=== PATIENT | male | born 1970 | race Hispanic/Latino ===

== ENCOUNTER 2016-11-04 05:18 | Inpatient (IN) ==
[2016-10-31 09:34] LABS: MANUAL DIFF NEEDED? NO; URINE MICRO REVIEW NEEDED? NO; URINE SOURCE CLEAN CATCH
[2016-10-31 09:41] LABS: BILIRUBIN URINE NEGATIVE (NEGATIVE); BLOOD URINE NEGATIVE (NEGATIVE); COLOR YELLOW; GLUCOSE URINE NEGATIVE (NEGATIVE); LEUKOCYTES URINE NEGATIVE (NEGATIVE); NITRITE URINE NEGATIVE (NEGATIVE); PH URINE 6.5; PROTEIN URINE NEGATIVE (NEGATIVE); SP GRAVITY URINE 1.009; TURBIDITY URINE CLEAR (CLEAR); UROBILINOGEN URINE NORMAL (NORMAL)
[2016-10-31 09:42] LABS: UR EPITHELIAL CELLS <10 /HPF (<10); URINE BACTERIA NEGATIVE /HPF; URINE RBC <10 /HPF (<10); URINE WBC <10 /HPF (<10)
[2016-10-31 09:43] LABS: BASO% 0.6 % (0.0-0.8); EOS# 0.13 X1000 (0.0-0.7); EOS% 2.1 % (0.0-10.0); HEMATOCRIT 42.5 % (42.0-52.0); HEMOGLOBIN 14.4 g/dL (14.0-18.0); IMM GRAN# 0.03 X1000 (0.0-0.04); IMM GRAN% 0.5 % (0.0-0.5); LYMPH# 1.96 X1000 (1.2-3.4); LYMPH% 31.4 % (20.5-51.1); MCH 26.4 PG (27-31); MCHC 33.9 g/dL (33-37); MONO# 0.58 X1000 (0.11-0.59); MONO% 9.3 % (1.7-9.3); MPV 10.4 FL (7.4-10.4); NEUT% 56.1 % (42.2-75.2); PLT 251 X1000 (130-400); RBC 5.45 XMIL (4.7-6.1)
--- NOTE | 2016-10-31 09:52 | EKG Report ---
Test Performed on : 10/31/2016 08:59:15 AM Test Reason : PAT Blood Pressure : / mmHG Vent. Rate : 064 BPM Atrial Rate : 064 BPM P-R Int : 146 ms QRS Dur : 092 ms QT Int : 406 ms P-R-T Axes : 029 011 032 degrees QTc Int : 418 ms Sinus rhythm. with marked sinus arrhythmia. Junctional ST depression, probably normal Borderline ECG No previous ECGs available Confirmed by Bill CARDOZA, Michael Melendrez ([id number]) on 11/01/2016 9:13:50 AM
[2016-10-31 09:56] LABS: INR 1.01; PROTIME 10.6 Seconds (9.2-11.7); PTT 28.7 Seconds (22.0-36.0)
[2016-10-31 10:01] LABS: AGAP 13; BUN 17 mg/dL (8-22); CALCIUM 9.1 mg/dL (8.8-10.2); CHLORIDE 101 mmol/L (98-107); COSMO 283; POTASSIUM 4.3 mmol/L (3.5-5.1); SODIUM 141 mmol/L (136-145); TCO2 27 mmol/L (25-35)
[2016-11-04] MEDS ORDERED: COLACE ONE (06:16)
[2016-11-04] MEDS ORDERED: LR 1,000 ML ONE ×2 (06:17→11:58)
[2016-11-04] MEDS ORDERED: CELEBREX ONE (06:17)
[2016-11-04] MEDS ORDERED: KEFZOL 2 GM/D5W 2 GM/50 ML IVPB ONE (06:17)
[2016-11-04] MEDS ORDERED: LYRICA ONE (06:17)
[2016-11-04] MEDS ORDERED: PEPCID ONE (06:17)
[2016-11-04] MEDS ORDERED: REGLAN ONE (06:17)
[2016-11-04] MEDS ORDERED: DIPRIVAN 1% 0 MG/0 ML BOTTLE ONE (06:22)
[2016-11-04] MEDS ORDERED: TORADOL ONE (06:55)
[2016-11-04] MEDS ORDERED: MARCAINE 0.25% PF/EPI 1:200,000 ONE (06:55)
[2016-11-04] MEDS ORDERED: CYKLOKAPRON 1,000 MG/NS 1,000 MG/100 ML IVPB ONE (06:56)
[2016-11-04] MEDS ORDERED: SODIUM CHLORIDE 0.9% ONE (06:56)
[2016-11-04] MEDS ORDERED: EXPAREL 1.3% ONE (06:56)
[2016-11-04] MEDS ORDERED: NEOSPORIN G.U. IRRIGANT ONE (06:56)
[2016-11-04 08:24] LABS: URINE MICRO REVIEW NEEDED? NO; URINE SOURCE CATH
[2016-11-04 08:31] LABS: BILIRUBIN URINE NEGATIVE (NEGATIVE); BLOOD URINE NEGATIVE (NEGATIVE); COLOR STRAW; GLUCOSE URINE NEGATIVE (NEGATIVE); LEUKOCYTES URINE NEGATIVE (NEGATIVE); NITRITE URINE NEGATIVE (NEGATIVE); PROTEIN URINE NEGATIVE (NEGATIVE); SP GRAVITY URINE 1.007; TURBIDITY URINE CLEAR (CLEAR); UROBILINOGEN URINE NORMAL (NORMAL)
[2016-11-04 08:33] LABS: UR EPITHELIAL CELLS <10 /HPF (<10); URINE BACTERIA NEGATIVE /HPF; URINE RBC <10 /HPF (<10); URINE WBC <10 /HPF (<10)
[2016-11-04] MEDS ORDERED: NS 1,000 ML ONE (09:23)
[2016-11-04] MEDS ORDERED: VERSED ONE (09:50)
[2016-11-04] MEDS ORDERED: FENTANYL ONE (09:50)
[2016-11-04] MEDS ORDERED: DIPRIVAN 1% ONE (09:50)
[2016-11-04] MEDS: MORPHINE ONE ×2 (09:51→09:56)
[2016-11-04] MEDS: DILAUDID ONE ×2 (10:08→10:18)
[2016-11-04] MEDS ORDERED: DILAUDID ONE (10:24)
[2016-11-04] MEDS ORDERED: AMBIEN PO PRN (10:45)
[2016-11-04] MEDS ORDERED: MORPHINE IV PRN (10:45)
[2016-11-04] MEDS ORDERED: ZOFRAN IV PRN (10:45)
[2016-11-04] MEDS ORDERED: MILK OF MAGNESIA PO PRN (10:45)
--- NOTE | 2016-11-04 10:58 | OPERATIVE NOTE ---
PROCEDURE DATE: 11/04/2016 PREOPERATIVE DIAGNOSIS: Left hip degenerative joint disease. POSTOPERATIVE DIAGNOSIS: Left hip degenerative joint disease. PROCEDURE PERFORMED: Left anterior total hip arthroplasty using a [facility] size 9 high offset femoral stem with a +0, 36 mm head and a 56 mm acetabular shell with 36 mm inside diameter acetabular liner. SURGEON: Nacho Curry MD PARAFFINER: Shreya. ANESTHESIA: General. COMPLICATIONS: None. BLOOD LOSS: Minimal. DRAIN: Hemovac x1. DESCRIPTION OF PROCEDURE: The patient was brought to the operative suite and placed in supine position. After successful administration of general anesthesia, the patient was placed on the OSI table in the usual position for the left hip. The left hip was then prepped and draped in the usual sterile fashion. A longitudinal incision was made beginning 2 cm distal and 2 cm lateral to the anterior superior iliac spine, extending distally and slightly laterally 8 cm. It was dissected sharply through the skin and subcutaneous tissue down to the tensor fascia, protecting the lateral femoral cutaneous nerve. The tensor fascia was incised and dissected bluntly down deep to the tensor fascia. The deep tensor fascia was electrocauterized in the circumflex vessels and then dissected bluntly down to the anterior capsule. T-capsulotomy was performed, exposing the femoral neck. A femoral neck cut was made with the oscillating saw. The femoral head was removed with a power corkscrew. The labrum was resected as well as calcified osteophytes and then the acetabulum was serially reamed to a 56 cup to accept a 56 cup. The 56 cup was driven into place in the proper amount of inclination and anteversion and then, once this verified to be in good position, the liner was locked into place. Attention was directed to the femur. It was externally rotated, extended, adducted, and elevated out of the wound with the hook on the OSI bed. The lateral neck was rongeured. The canal was serially broached to a size 9. A size 9 high offset, +36 head was trialed and found be excellent leg length, offset, and stability. The trial was removed. The definitive stem was seated on the femur. The ceramic head was seated on the Patel taper and the hip was reduced. It was again found to be in excellent position. The hip was copiously infiltrated with Exparel, including the posterior capsule, anterior capsule, anterior musculature, and subcutaneous tissue. The anterior capsule was repaired with 0 V-Loc. The hip was copiously irrigated and dried, and then the tensor fascia was closed with running 0 V-Loc. The skin edge was approximated with 2-0 Vicryl. The skin was closed with Monocryl and Prineo. The patient tolerated the procedure well without complication. At the end of the procedure, all counts were correct. The patient was transferred to the recovery room in stable condition. cc: Nacho Curry MD
[2016-11-04] MEDS ORDERED: NEOSTIGMINE ONE (11:57)
[2016-11-04] MEDS ORDERED: OFIRMEV 1000 MG/ISOTONIC SOLN 1,000 MG/100 ML BOTTLE ONE (11:58)
[2016-11-04] MEDS ORDERED: DECADRON ONE (11:58)
[2016-11-04] MEDS ORDERED: ZOFRAN ONE (11:58)
[2016-11-04] MEDS ORDERED: QUELICIN (DOSE) ONE (11:58)
[2016-11-04] MEDS ORDERED: NORCURON ONE (11:58)
[2016-11-04] MEDS ORDERED: ROBINUL ONE (11:58)
[2016-11-04] MEDS: ULTRAM PO SCH ×2 (12:00→16:37)
[2016-11-04] MEDS: TYLENOL PO SCH ×3 (12:01→23:48)
[2016-11-04] MEDS: NS 1,000 ML IV SCH ×2 (12:06→23:49)
[2016-11-04] MEDS ORDERED: CYKLOKAPRON 1,000 MG in NS 100 ML IV ONE (13:45)
[2016-11-04] MEDS: OXY IR PO PRN ×3 (14:26→20:18)
[2016-11-04] MEDS: KEFZOL 2 GM/D5W 2 GM/50 ML IVPB IV SCH ×2 (16:38→23:49)
[2016-11-04] MEDS: CELEBREX PO SCH (22:06)
[2016-11-04] MEDS: PERIDEX MT SCH (22:06)
[2016-11-04] MEDS: COLACE PO SCH (22:06)
[2016-11-04] MEDS: LYRICA PO SCH (22:07)
[2016-11-05] MEDS: ULTRAM PO SCH ×3 (00:49→11:12)
[2016-11-05] MEDS: TYLENOL PO SCH ×2 (05:34→11:06)
[2016-11-05] MEDS ORDERED: XARELTO PO SCH (06:00)
[2016-11-05 06:11] LABS: HEMATOCRIT 33.8 % (42.0-52.0); HEMOGLOBIN 11.1 g/dL (14.0-18.0)
[2016-11-05 06:15] LABS: AGAP 10; BUN 12 mg/dL (8-22); CALCIUM 8.2 mg/dL (8.8-10.2); CHLORIDE 102 mmol/L (98-107); COSMO 276; POTASSIUM 4.1 mmol/L (3.5-5.1); SODIUM 138 mmol/L (136-145); TCO2 26 mmol/L (25-35)
[2016-11-05] MEDS: OXY IR PO PRN (07:57)
[2016-11-05] MEDS: CELEBREX PO SCH (08:51)
[2016-11-05] MEDS: LYRICA PO SCH (08:51)
[2016-11-05] MEDS: COLACE PO SCH (08:51)
[2016-11-05] MEDS: PERIDEX MT SCH (08:52)
[2016-11-05] MEDS ORDERED: DECADRON IV ONE (09:00)
[2016-11-05] MEDS ORDERED: PEPCID PO SCH (09:00)
[2016-11-05 12:32] VITALS: BP 121/72
--- NOTE | 2016-11-05 15:23 | DISCHARGE SUMMARY ---
ADMISSION DATE: 11/04/2016 DISCHARGE DATE: 11/05/2016 DISCHARGE DIAGNOSIS: Left hip degenerative joint disease status post left total hip arthroplasty. DISCHARGE MEDICATIONS: See discharge medication list. DISPOSITION: The patient is discharged home with home health. DISCHARGE INSTRUCTIONS: Instructions for total hip arthroplasty protocol. Instructed to return to see Dr. Curry next . HOSPITAL COURSE: On the day of admission, patient underwent a left total hip arthroplasty. His postoperative course was unremarkable. At discharge, he is afebrile tolerating a regular diet and ambulating well with physical therapy. Yesterday, he walked 125 feet. His wound is clean, dry, and intact without sign of infection. His hemoglobin is 11.1 and his hematocrit is 33.8, he had 320 mL of drainage from the Hemovac. He is discharged home with home health in stable condition and instructed to follow up as described above. Dictated by HARINDER Jules for Nacho Curry MD cc: HARINDER Jules MD
== END 2016-11-05 13:09 | disposition home health service (06) ==
LOC: SURHOLD 05:18 → 4N 08:15
PROVIDERS: ADMIT Orthopaedic Surgery; ATTEND Orthopaedic Surgery

== ENCOUNTER 2019-09-02 20:55 | Inpatient (IN) ==
[2019-09-02 21:36] LABS: URINE SOURCE CLEAN CATCH
[2019-09-02 21:39] LABS: BILIRUBIN URINE NEGATIVE (NEGATIVE); BLOOD URINE TRACE (NEGATIVE); COLOR YELLOW; GLUCOSE URINE NEGATIVE (NEGATIVE); KETONE URINE NEGATIVE (NEGATIVE); LEUKOCYTES URINE NEGATIVE (NEGATIVE); NITRITE URINE NEGATIVE (NEGATIVE); PH URINE 6.5; PROTEIN URINE TRACE mg/dL (NEGATIVE); SP GRAVITY URINE 1.019; TURBIDITY URINE CLEAR (CLEAR); UROBILINOGEN URINE NORMAL (NORMAL)
[2019-09-02 21:40] LABS: UR EPITHELIAL CELLS <10 /HPF (<10); URINE BACTERIA NEGATIVE /HPF; URINE RBC <10 /HPF (<10); URINE WBC <10 /HPF (<10)
[2019-09-02 21:40] LABS: BASO# 0.04 X1000 (0.0-0.2); BASO% 0.3 % (0.0-0.8); EOS# 0.21 X1000 (0.0-0.7); EOS% 1.5 % (0.0-10.0); HEMATOCRIT 41.6 % (42.0-52.0); HEMOGLOBIN 13.7 g/dL (14.0-18.0); IMM GRAN# 0.03 X1000 (0.0-0.04); IMM GRAN% 0.2 % (0.0-0.5); LYMPH# 3.26 X1000 (1.2-3.4); MCH 25.8 PG (27-31); MCHC 32.9 g/dL (33-37); MCV 78.3 FL (81-99); MONO# 1.53 X1000 (0.11-0.59); MONO% 10.8 % (1.7-9.3); MPV 10.5 FL (7.4-10.4); NEUT# 9.09 X1000 (1.4-6.5); NEUT% 64.2 % (42.2-75.2); PLT 316 X1000 (130-400); RBC 5.31 XMIL (4.7-6.1); WBC 14.16 X1000 (4.8-10.8)
[2019-09-02 21:50] LABS: AGAP 15; ALKALINE PHOSPHATASE 93 U/L (32-122); AMYLASE 40 U/L (20-200); BUN 11 mg/dL (8-22); CALCIUM 9.2 mg/dL (8.8-10.2); CHLORIDE 95 mmol/L (98-107); COSMO 265; CREATININE 1.1 mg/dL (0.7-1.2); ESTIMATED GFR > 60; GLUCOSE 115 mg/dL (70-104); GOT 15 U/L (10-34); GPT 17 U/L (10-44); LIPASE 40 U/L (13-60); POTASSIUM 3.7 mmol/L (3.5-5.1); SODIUM 132 mmol/L (136-145); TCO2 22 mmol/L (25-35); TOTAL PROTEIN 8.2 g/dL (6.3-8.3)
[2019-09-02] MEDS ORDERED: NS 1,000 ML IV ONE (22:50)
[2019-09-02] MEDS ORDERED: ZOSYN 4.5 GM in NS 100 ML IV ONE (22:50)
--- NOTE | 2019-09-02 22:56 | PROVIDER DOCUMENTATION ---
This chart was entered by Rachele Howell Scribe, acting as scribe for Inna Cho MD. HPI-Abdominal Pain/GI Problem - General Chief Complaint: Abdominal Pain Stated Complaint: ABD PAIN Time Seen by Provider: 09/02/19 21:06 Source: patient Allergies/Adverse Reactions: Patient Allergies Allergy/AdvReac Type Severity Reaction Status Date / Time No Known Allergies Allergy Verified 10/31/16 08:57 Home Medications: Home Medication List Medication Instructions Recorded Confirmed Last Taken Type Ciprofloxacin HCl [Cipro] 500 mg PO BID 09/02/19 09/02/19 Unknown History Metronidazole [Flagyl] 500 mg PO TID 09/02/19 09/02/19 Unknown History - History of Present Illness-ABD Nature of Presenting Problems: 49 yowm presents to the ed with c/o LLQ pain, constipation for 6 days. pt sts pain is worse with BM and started an abx on friday and has had no relief. Abdominal Pain Onset Location: reports: LLQ Quality of Pain: reports: aching, cramping Severity in ED: reports: moderate Onset/Duration: reports: 6 days ago Timing: reports: improving, intermittent Activities at Onset: reports: light activity Modifying Factors: worse with: defecating Associated Symptoms: reports: constipation, fever/chills (subjective), other (rectal pain with BM). denies: back/neck pain, chest pain, cough, genitourinary problems, nausea, shortness of breath, vomiting Last BM: this afternoon Dark Stools Present?: reports: none noticed Rectal Bleeding: reports: none # of Diarrhea Episodes: 0 Rectal Pain: reports: none # of Vomiting Episodes: 0 Emesis Description: reports: none Bruising or Bleeding Gums?: No Similar Symptoms Previously?: Yes (hx of constipation) Recently seen or treated by another doctor?: Yes (on friday and given abx) Review of Systems - Adult - REVIEW OF SYSTEMS - ADULT Constitutional: reports: chills, fever (subjective) Eyes: reports: no symptoms reported Ears, Nose, Mouth & Throat: reports: no symptoms reported Cardiovascular: denies: chest pain, palpitations Respiratory: denies: cough, shortness of breath, wheezing Gastrointestinal: reports: see HPI, abdominal pain, constipation. denies: diarrhea, nausea, vomiting Genitourinary: reports: no symptoms reported Musculoskeletal: denies: back pain, neck pain Integumentary: reports: no symptoms reported Neurological: denies: dizziness/vertigo, headache/migraines Psychiatric: reports: no symptoms reported Endocrine: reports: no symptoms reported Hematologic/Lymphatic: reports: no symptoms reported Allergic/Immunologic: reports: no symptoms reported All Other Systems: Reviewed and Negative Past History - Adult - PAST MEDICAL HISTORY-ADULT Review of Records: reports: Old Records Reviewed, Nursing Assessment Review, Medications Reviewed, Social history reviewed & non-contributory. Major Childhood Illnesses: reports: denies history Cardiovascular: reports: denies history Respiratory: reports: denies history Gastrointestinal: reports: denies history Genitourinary: reports: denies history Musculoskeletal: reports: denies history Neurological: reports: denies history Psychiatric: reports: denies history Endocrine/Immune: reports: denies history Other Conditions: reports: denies history - PRIOR SURGERIES/PROCEDURES Surgical/Procedure History: reports: reviewed, not pertinent - IMMUNIZATION STATUS Childhood Immunizations: See Nurse Assessment Flu Vaccine: See Nurse Assessment - FAMILY HISTORY Family History: reviewed, not pertinent - SOCIAL HISTORY Smoking: denies Substance Use: denies Living Situation: family Physical Exam-General - PHYSICAL EXAM-ADULT Initial Vital Signs Reviewed: Yes - CONSTITUTIONAL General Appearance: appears well, alert, no apparent distress (nontoxic in appearance) - EYES Eyes: PERRL/EOMI - HEAD, EARS, NOSE, MOUTH & THROAT HENMT: other (OP exam deferred due to covid and pt does not c/o any resp issues. mask is in place on pt) - NECK Neck: full range of motion, normal inspection - RESPIRATORY Respiratory: chest non-tender, lungs clear, normal breath sounds - CARDIOVASCULAR Cardiovascular: normal peripheral pulses, tachycardia (101) - CHEST (BREASTS) Chest/Breast: deferred - GASTROINTESTINAL (ABDOMEN) Abdominal Exam: normal bowel sounds, soft, no organomegaly, no pulsatile mass, guarding, tenderness (LLE). negative: distended, rigid, rebound - GENITOURINARY Male Genitalia: deferred Rectal Exam: deferred Hemoccult Exam: deferred - LYMPHATIC Lymphatic: no adenopathy - MUSCULOSKELETAL Back Exam: no CVA tenderness, no vertebral tenderness Progress - PLAN OF CARE/RESULTS Progress/Plan/Lab Results: Vital Signs - 8 hr 09/01/ 21:00 Temperature 97.3 F L Pulse Rate 101 H Respiratory Rate 20 Blood Pressure 127/83 O2 Sat by Pulse Oximetry 97 Result Diagrams: 09/02/19 21:10 09/02/19 21:10 - CT/MRI 1 CT Study: Abdomen, Pelvis Impression: Abnormal (Acute sigmoid diverticulitis with contained focal perforation and diverticular abscess 2.5x2.6 cm. No free air below the diaphragm.), See EMR Report - CONSULTS/PCP/HOSPITALIST Notification #1 *Consult/PCP/Hospitalist*: d/w Dr Jean Baptiste Time Discussed: 22:48 Consult Disposition: Admit (advise to admit to the hospitalist and transfer to [facility]) #2 Consult: D/w Dr Bonds Time Discussed: 23:50 Consult Disposition: Admit, other (requested to inform RN to call when the pt arrives on the floor.) Departure - Departure Date of Disposition Decision: 09/02/19 Time of Disposition Decision: 22:53 DIAGNOSIS: Diverticular disease of intestine with perforation and abscess, Sigmoid diverticulitis Disposition: ADMITTED INPATIENT 09 Certified Medical Emergency: Emergent Condition: Stable Referrals and Follow-Ups: Don Urrutia MD [Primary Care Provider] - - Critical Care Note This patient required my direct & personal management of CC.: No Attestation - Physician/ JAZZY Attestation Patient care was provided by Advanced Practice Provider:: No The physician spent face to face time with patient:: Yes Advanced Practice Provider documentation review:: Supervising physician onsite and consulted in the evaluation and care of this patient. The physician did have a face to face encounter with the patient. This chart was documented by the indicated scribe, (Rachele Howell Scribe) and accurately reflects the services I performed and decisions made by me, Inna Cho MD, as attested by the provider's signature.
[2019-09-03] MEDS ORDERED: ZOFRAN IV PRN (01:40)
[2019-09-03] MEDS ORDERED: MORPHINE IV PRN (01:44)
--- NOTE | 2019-09-03 02:50 | HISTORY AND PHYSICAL ---
PRIMARY CARE PROVIDER: Dr. Don Urrutia. CHIEF COMPLAINT: Left lower quadrant pain, constipation. HISTORY OF PRESENT ILLNESS: Mr. Mae is a 49-year-old gentleman with really no past medical history, who complained of constipation and left lower quadrant pain starting on Friday. He called his family physician office, he was started on antibiotics and a bowel regimen. His pain continued to worsen and he came to the ED to be evaluated, where a abdomen and pelvis CT did show acute sigmoid diverticulitis with contained focal perforation and a diverticular abscess of 2.5 x 2.6 cm with no free air below the diaphragm. Dr. Jean Baptiste was consulted as well as hospitalist service. The patient was transferred from [facility] to the 4th floor at [facility]. Will continue NPO status, IV fluids and pain regimen as well as antibiotics. PAST MEDICAL HISTORY: Recent constipation. PAST SURGICAL HISTORY: Left hip replacement. FAMILY HISTORY: Reviewed, noncontributory. SOCIAL HISTORY: He is , 2 children. Retired police communications dispatcher. Continues to work for the [employer]. Occasional alcohol. No illicit drugs. No smoking. REVIEW OF SYSTEMS: Twelve-point review of systems completely negative except for those mentioned in HPI. PHYSICAL EXAMINATION: VITAL SIGNS: Temperature is 98 degrees, heart rate 94, respirations 20, blood pressure 127/73, O2 is 100% on room air. GENERAL: Mr. Mae is a pleasant 49-year-old male who is lying in the bed in no acute distress. HEENT: Atraumatic, normocephalic. PERRL. NECK: Supple. Trachea midline. CARDIOVASCULAR: S1, S2 appreciated. No murmurs, gallops, or rubs noted. RESPIRATORY: Lung sounds clear bilaterally. GASTROINTESTINAL: Soft, tender, extremely tender to the left lower quadrant. Positive bowel sounds. LOWER EXTREMITIES: Negative for edema. NEUROLOGIC: No focal deficits noted. DIAGNOSTIC DATA: Abdomen and pelvis CT, acute sigmoid diverticulitis with contained focal perforation and diverticular abscess. LABORATORY DATA: White count 14, hemoglobin and hematocrit 13 and 41, platelet count is 316,000. Sodium 132, potassium 3.7, BUN 11, creatinine 1.1. Blood glucose 115. Plasma lactate 0.7. ASSESSMENT AND PLAN: 1. Acute sigmoid diverticulitis with contained focal perforation and diverticular abscess. Dr. Jean Baptiste has been consulted. We will continue with IV antibiotics, IV fluids, antiemetics and pain regimen. 2. Mild hyponatremia. Continue with IV hydration. 3. Further recommendation to follow physician evaluation, laboratory and diagnostic data. Dictated by JASON Sims for Koby Bonds MD cc: MD Marilyn Olmos MD David Francis, MD Independent exam and assessment performed by me and discussed above plan of care with DATA ASSISTANT. Told patient that he will need a follow up CT abdomen in 2-3 days to document progress at which time the need for percutaneous drainage vs conservative measures will be decided. [facility] HOSPITALOfelia
[2019-09-03] MEDS: NS 1,000 ML IV SCH ×3 (03:02→22:33)
[2019-09-03] MEDS: ZOSYN 4.5 GM in NS 100 ML IV SCH ×4 (05:20→22:33)
--- NOTE | 2019-09-03 07:13 | EKG Report ---
Test Performed on : 09/03/2019 06:38:48 AM Test Reason : pre sx Blood Pressure : / mmHG Vent. Rate : 060 BPM Atrial Rate : 060 BPM P-R Int : 146 ms QRS Dur : 114 ms QT Int : 416 ms P-R-T Axes : 038 023 035 degrees QTc Int : 416 ms Normal sinus rhythm. Incomplete right bundle branch block Borderline ECG When compared with ECG of 31-OCT-2016 08:59, ST no longer depressed in Inferior leads Confirmed by Ryland CARDOZA, Martín Price ([id number]) on 09/03/2019 9:25:04 AM
--- NOTE | 2019-09-03 07:18 | Diag Imaging Result Doc PS360 ---
EXAM: CT ABD/PELVIS W/IV CONT ONLY 09/02/2019 HISTORY: abd pain TECHNIQUE: This exam was performed using automated exposure control, adjustment of mA or kV according to patient size, and/or use of iterative reconstruction technique. COMMENT: There are no previous studies available for comparison. The visualized portion of the chest is unremarkable. There is a fair amount of retained fluid in the stomach. The gallbladder is not distended. The adrenal glands and spleen are not enlarged. The liver is unremarkable in appearance. The kidneys are without evidence of hydronephrosis or mass. The aorta is not distended and there is no significant adenopathy. The pancreas is unremarkable. There is some gas and fecal debris in the colon without evidence of dilatation, and the small bowel is not distended. Pelvis: There is diverticulitis in the sigmoid colon with an abscess posteriorly seen best on image 129, measuring 2.7 cm in diameter. There is no significant free fluid. The urinary bladder is not distended. There is a left hip prosthesis which produces some beam hardening artifact. The regional skeleton appears to be intact. IMPRESSION: Diverticulitis in the sigmoid colon with paracolic abscess. Electronically signed by Sohan Glez 09/03/2019 7:16 AM
[2019-09-03 07:32] LABS: BASO# 0.09 X1000 (0.0-0.2); EOS# 0.19 X1000 (0.0-0.7); HEMATOCRIT 39.1 % (42.0-52.0); HEMOGLOBIN 12.7 g/dL (14.0-18.0); IMM GRAN# 0.02 X1000 (0.0-0.04); IMM GRAN% 0.2 % (0.0-0.5); LYMPH# 2.48 X1000 (1.2-3.4); LYMPH% 26.4 % (20.5-51.1); MCH 25.7 PG (27-31); MCHC 32.5 g/dL (33-37); MCV 79.1 FL (81-99); MONO# 0.66 X1000 (0.11-0.59); MPV 10.4 FL (7.4-10.4); NEUT# 5.97 X1000 (1.4-6.5); NEUT% 63.4 % (42.2-75.2); PLT 283 X1000 (130-400); RBC 4.94 XMIL (4.7-6.1); RDW 13.1 % (11.5-14.5); WBC 9.41 X1000 (4.8-10.8)
[2019-09-03 07:48] LABS: AGAP 11; ALB/GLOB RATIO 0.8; ALBUMIN 3.1 g/dL (3.5-5.0); ALKALINE PHOSPHATASE 81 U/L (32-122); BUN 9 mg/dL (8-22); CALCIUM 8.9 mg/dL (8.8-10.2); CHLORIDE 103 mmol/L (98-107); COSMO 273; CREATININE 0.9 mg/dL (0.7-1.2); ESTIMATED GFR > 60; GLUCOSE 100 mg/dL (70-104); GOT 12 U/L (10-34); GPT 13 U/L (10-44); POTASSIUM 4.2 mmol/L (3.5-5.1); SODIUM 137 mmol/L (136-145); TCO2 23 mmol/L (25-35); TOTAL BILIRUBIN 0.37 mg/dL (0.20-1.00); TOTAL PROTEIN 6.8 g/dL (6.3-8.3)
--- NOTE | 2019-09-03 14:13 | PROGRESS NOTE ---
DATE: 09/03/2019 SUBJECTIVE: The patient seems to be feeling a little bit better compared to admission, he is still complaining of left lower quadrant pain. His last bowel movement was yesterday during the night. He does have some bowel sounds. No signs of peritoneal irritation. Vital signs are stable as well as the laboratory. OBJECTIVE: Vital Signs: Temperature 98.4 degrees, pulse 63, respiratory rate 20, blood pressure 112/69, oxygen saturation 98 on room air. HEENT: Head normocephalic, no trauma. PERRLA. Neck: Supple. No JVD. No masses. Central trachea. Chest: Clear to auscultation. No wheezing, no rales. Abdomen: Soft, tender to palpation at the level of the left lower quadrant. Positive bowel sounds. No signs of peritoneal irritation. Extremities: No edema, no clubbing, no cyanosis. Neurological: The patient is awake, alert, he is oriented x3. No focal deficit. LABORATORY: WBC 9.4, hemoglobin 12.7, hematocrit 39.1, platelets 283,000. Sodium 137, potassium 4.2, chloride 103, bicarbonate 23, BUN 9, creatinine 0.9, glucose 100, calcium 8.9, AST 12, ALT 13, alkaline phosphatase 81, albumin 3.1. ASSESSMENT AND PLAN: 1. Abdominal pain with a CT scan that showed diverticulitis in the sigmoid colon with paracolic abscess, this patient has been placed on intravenous fluids and antibiotics. His white blood cell count normalized and he is feeling better. Surgery Department on board. Will continue following their recommendations. 2. Mild hyponatremia resolved. 3. Constipation, actually this patient had a bowel movement yesterday night. cc: Adams Alegre MD
--- NOTE | 2019-09-03 14:22 | GENERAL SURGERY CONSULTATION ---
DATE: 09/03/2019 REASON FOR CONSULTATION: Complicated diverticulitis. CHIEF COMPLAINT: Left lower quadrant abdominal pain. HISTORY OF PRESENT ILLNESS: This is a 49-year-old gentleman who has had left lower quadrant abdominal pain last week. He was treated with oral antibiotics as an outpatient, but failed to completely re improve. Bowel function has been relatively normal over this. I believe he has had a colonoscopy, but it has been some time ago. He came to the ER last night, where he was found to have a contained small pericolonic diverticular abscess. He feels better this morning after initiation of IV antibiotics. MEDICAL HISTORY: Negative. SURGICAL HISTORY: Left hip replacement. No abdominal surgery. FAMILY HISTORY: Negative for colorectal cancer. SOCIAL HISTORY: , has children. 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 He does have occasional alcohol. No smoking. No drugs. REVIEW OF SYSTEMS: A 10-point review of systems was performed and negative, other than what is mentioned on his HPI. PHYSICAL EXAMINATION: Vital Signs: On exam, he is afebrile, pulse 63, blood pressure 112/69, oxygen saturation is 98%. General: He is alert. HEENT: No scleral icterus. Neck: No cervical mass. Cardiovascular: Normal rate. Pulmonary: No increased work of breathing. Abdomen: Soft. He is tender in the left lower quadrant, but no michael peritonitis. He is nondistended. Integument: Warm and dry. Psychiatric: Appropriate affect. Neurologic: No gross deficits. Peripheral vascular: No lower extremity edema. Lymphatic: No cervical, axillary or inguinal adenopathy. LABS: White count was elevated to 14, but is down to 9 this morning, hematocrit is 39, platelets 283. Creatinine 0.9. LFTs are normal. Urinalysis shows negative for nitrites and leukocytes. X-RAYS: CT scan shows diverticulitis with a small 2.7 cm pericolic-contained abscess. ASSESSMENT AND PLAN: A 49-year-old gentleman with diverticular abscess. His abdominal exam seems to be improving, and he does not have peritonitis. We will continue intravenous antibiotics as definitive management unless his abdominal exam changes. I do think he would most likely benefit depending on his course from more long-term intravenous antibiotics as I do not think it is amenable to percutaneous drainage, but we will follow him closely. Dr. Sanchez is conservation coordinator this weekend for my patients. cc: Marilyn Jean Baptiste MD
[2019-09-04] MEDS: ZOSYN 4.5 GM in NS 100 ML IV SCH ×4 (05:31→22:19)
[2019-09-04 07:17] LABS: BASO# 0.04 X1000 (0.0-0.2); BASO% 0.5 % (0.0-0.8); EOS# 0.25 X1000 (0.0-0.7); EOS% 3.4 % (0.0-10.0); HEMOGLOBIN 12.8 g/dL (14.0-18.0); IMM GRAN# 0.02 X1000 (0.0-0.04); IMM GRAN% 0.3 % (0.0-0.5); LYMPH# 2.25 X1000 (1.2-3.4); LYMPH% 30.6 % (20.5-51.1); MCH 25.4 PG (27-31); MCV 79.4 FL (81-99); MONO# 0.56 X1000 (0.11-0.59); MONO% 7.6 % (1.7-9.3); MPV 10.3 FL (7.4-10.4); NEUT# 4.24 X1000 (1.4-6.5); NEUT% 57.6 % (42.2-75.2); PLT 306 X1000 (130-400); RBC 5.04 XMIL (4.7-6.1); RDW 13.2 % (11.5-14.5); WBC 7.36 X1000 (4.8-10.8)
[2019-09-04 07:41] LABS: AGAP 13; BUN 9 mg/dL (8-22); CALCIUM 8.5 mg/dL (8.8-10.2); CHLORIDE 102 mmol/L (98-107); COSMO 274; CREATININE 0.9 mg/dL (0.7-1.2); ESTIMATED GFR > 60; GLUCOSE 85 mg/dL (70-104); POTASSIUM 4.2 mmol/L (3.5-5.1); SODIUM 138 mmol/L (136-145); TCO2 23 mmol/L (25-35)
[2019-09-04 07:44] LABS: IRON SATURATION 30 %; TIBC 154 ug/dL; TOTAL IRON 46 ug/dL (53-167); UNBOUND IRON 108 ug/dL (112-346)
[2019-09-04 08:00] LABS: FERRITIN 315 ng/mL (30-400)
--- NOTE | 2019-09-04 11:41 | GENERAL SURGERY PROGRESS NOTE ---
DATE: 09/04/2019 SUBJECTIVE: The patient denies any pain, nausea, vomiting, fever, or chills. He is hungry. He is passing gas. OBJECTIVE: He is afebrile. Vital signs are stable.General: He is awake, alert, oriented x3. No acute distress. Gastrointestinal: Soft, nondistended. Mild tenderness in the left lower quadrant. LABORATORY: White blood cell count 7.3, hemoglobin 12.8, hematocrit 40. He does not have a left shift. Electrolytes reviewed and unremarkable. ASSESSMENT AND PLAN: A 49-year-old male with a diverticular abscess, responding to IV antibiotics. We will start him on a clear liquid diet. cc: Yassine Sanchez MD
--- NOTE | 2019-09-04 12:44 | PROGRESS NOTE ---
DATE: 09/04/2019 SUBJECTIVE: Patient reports feeling fine. Denies any fever or chills. No abdominal pain. He has been started on clear liquids today and apparently he is tolerating it very well. OBJECTIVE: Vital Signs: Temperature 98.4 degrees, heart rate 76, respiratory rate 20, blood pressure 118/69. O2 saturation 99% on room air. General: This is a 49-year-old, male, lying in bed in no acute distress. Cardiovascular: S1, S2 heard. No murmurs, gallops, or rubs. Regular rate and rhythm. Respiratory: Clear bilaterally to auscultation. No work of breathing or using accessory muscles. Abdomen: Soft, a little bit of tenderness to palpation noted in the left lower quadrant but there are no signs of peritoneal irritation. Extremities: No clubbing, cyanosis, or edema. Peripheral pulses present in both legs. Neurological: Patient alert, oriented x3. Moves 4 extremities. LABORATORY DATA: Reviewed. ASSESSMENT AND PLAN: 1. Acute sigmoid diverticulitis with pericolic abscess. Patient clinically is doing much better. No abdominal pain at rest. We will continue with intravenous antibiotics. We are going to advance his diet to gastrointestinal soft diet. I think if he is feeling better tomorrow he can be discharged. His white cell count is completely back to normal today. General Surgery has been consulted, but they do not think he needs any surgical approach at this time. 2. Mild hyponatremia, resolved. 3. Constipation, resolved. 4. Disposition. I think if this patient tolerates gastrointestinal soft diet tomorrow he can be discharged. cc: Adria Henderson MD
[2019-09-04] MEDS: NS 1,000 ML IV SCH (22:19)
[2019-09-05] MEDS: NS 1,000 ML IV SCH ×3 (00:44→14:13)
[2019-09-05] MEDS: ZOSYN 4.5 GM in NS 100 ML IV SCH ×2 (05:09→12:05)
[2019-09-05 07:01] LABS: BASO# 0.03 X1000 (0.0-0.2); BASO% 0.4 % (0.0-0.8); EOS# 0.28 X1000 (0.0-0.7); EOS% 4.1 % (0.0-10.0); HEMATOCRIT 39.4 % (42.0-52.0); HEMOGLOBIN 12.7 g/dL (14.0-18.0); LYMPH% 29.1 % (20.5-51.1); MCH 25.5 PG (27-31); MCHC 32.2 g/dL (33-37); MCV 79.1 FL (81-99); MONO# 0.56 X1000 (0.11-0.59); MONO% 8.2 % (1.7-9.3); MPV 10.1 FL (7.4-10.4); NEUT% 58.2 % (42.2-75.2); PLT 326 X1000 (130-400); RBC 4.98 XMIL (4.7-6.1); WBC 6.87 X1000 (4.8-10.8)
[2019-09-05 07:20] LABS: AGAP 10; BUN 9 mg/dL (8-22); CALCIUM 8.7 mg/dL (8.8-10.2); CHLORIDE 104 mmol/L (98-107); COSMO 275; CREATININE 1.1 mg/dL (0.7-1.2); ESTIMATED GFR > 60; GLUCOSE 110 mg/dL (70-104); POTASSIUM 4.3 mmol/L (3.5-5.1); SODIUM 138 mmol/L (136-145); TCO2 24 mmol/L (25-35)
--- NOTE | 2019-09-05 09:11 | GENERAL SURGERY PROGRESS NOTE ---
DATE: 09/05/2019 SUBJECTIVE: The patient is feeling better. His pain is significantly improved. He is tolerating his soft diet. He has had 2 bowel movements. OBJECTIVE: He is afebrile. Vital signs are stable. General: He is awake, alert, and oriented x3. No acute distress. Gastrointestinal: Soft, nontender, nondistended. Notably less tender in the left lower quadrant. Laboratory: Reviewed and unremarkable. ASSESSMENT AND PLAN: A 49-year-old male with persistent diverticular disease and abscess. He has improved significantly since admission, on intravenous antibiotics. Options are discharge home to continue a course of oral antibiotics and close followup with Dr. Jean Baptiste versus continue in the hospital another day to allow Dr. Jean Baptiste to reassess and decide on outpatient intravenous antibiotics, short course through a peripherally inserted central catheter line for about another week. cc: Yassine Sanchez MD
[2019-09-05 11:44] VITALS: BP 139/92
--- NOTE | 2019-09-05 15:42 | DISCHARGE SUMMARY ---
ADMISSION DATE: 09/02/2019 DISCHARGE DATE: 09/05/2019 DISCHARGE DIAGNOSES: 1. Acute sigmoid diverticulitis with diverticular abscess improved. 2. Mild hyponatremia improved. CONSULTATIONS: Dr. Jemal Jean Baptiste from General Surgery. PROCEDURES: CT of abdomen, pelvis showed diverticulitis in the sigmoid colon with pericolic abscess. HOSPITAL COURSE: This is a 49-year-old male with unremarkable past medical history who started complaining of abdominal pain the left lower quadrant so he decided to come to emergency department and he was found diverticular abscess, we admit this patient to the hospital and consult General Surgery, Dr. Jean Baptiste thought that this patient only will need IV antibiotics. In that regard he was admitted to hospital and started on broad-spectrum antibiotics with Zosyn. Patient would start improving, no abdominal pain, no nausea or vomiting so today the discharge. Patient was cleared by surgery so he needs to continue with antibiotic that has been prescribed by Dr. Sanchez in this case ciprofloxacin and metronidazole. He is supposed to see Dr. Jemal Jean Baptiste in the office in 2 weeks. Patient is going to be discharged in stable condition. Patient is not requiring any pain medication. Will continue with same management. DISCHARGE PHYSICAL EXAMINATION: Temperature 97.3 degrees, heart rate 85, respiratory rate 20, blood pressure 139/92, O2 saturation 96% on room air. General: This is a 49-year-old male lying in bed in no acute distress. Cardiovascular: S1, S2 heard. No murmurs, gallops, or rubs. Regular rate and rhythm. Respiratory: Clear bilaterally to auscultation. No work of breathing or using accessory muscles. Abdomen: Soft, nontender to palpation. Bowel sounds present. No organomegaly. Extremities: No clubbing, cyanosis or edema. Peripheral pulses present in both legs. Neurologic: The patient is alert, oriented x3. Moves 4 extremities. DISCHARGE DISPOSITION: Home to self-care. MEDICATIONS: 1. Ciprofloxacin 500 mg 1 tablet p.o. b.i.d. 2. Flagyl 500 mg 1 tablet p.o. 3 times per day for a week. FOLLOWUP: With Dr. Jemal Jean Baptiste in a week. cc: Adria Henderson MD [facility]
== END 2019-09-05 15:14 | disposition home or self-care (01) | DRG 392 ==
LOC: P.ED 20:55 → SUATTDRO 20:56 → 4N 09-03 00:42
PROVIDERS: ATTEND Internal Medicine